=== PATIENT | female | born 1980 | race Caucasian/White ===

== ENCOUNTER 2021-10-02 08:47 | Day surgery (SDC) | payer OTHER, SELFPAY ==
[~2021-10-02] VITALS: Ht 157.5 cm; Wt 68.0 kg
[2021-10-02] MEDS ORDERED: fentaNYL citrate 0.05 MG/ML VIAL ONE (11:05)
[2021-10-02] MEDS ORDERED: MIDAZOLAM 5 MG/5 ML VIAL ONE (11:05)
[2021-10-02] MEDS ORDERED: diphenhydrAMINE 50 MG/ML VIAL ONE (11:05)
[2021-10-02] MEDS ORDERED: MIDAZOLAM 2 MG/2 ML VIAL IVP ONE (14:00)
[2021-10-02] MEDS ORDERED: fentaNYL citrate 0.05 MG/ML VIAL IVP ONE (14:00)
== END 2021-10-02 12:30 | disposition home or self-care (01) ==
LOC: MDS 08:47 → MMU 08:47 → MDS 12:30
PROVIDERS: ATTEND Internal Medicine Gastroenterology
DX: R10.10 Upper abdominal pain, unspecified (principal); K44.9 Diaphragmatic hernia without obstruction or gangrene; Z20.822 Contact with and (suspected) exposure to COVID-19; Z79.899 Other long term (current) drug therapy
CPT/HCPCS: 43239; 81025; 87426; J2250; J3010; J1200

== ENCOUNTER 2024-06-03 10:44 | Day surgery (SDC) | payer OTHER ==
[~2024-06-03] VITALS: Ht 157.5 cm; Wt 63.0 kg
[2024-06-03] MEDS ORDERED: fentaNYL citrate 0.05 MG/ML VIAL ONE ×2 (12:13→12:29)
[2024-06-03] MEDS: fentaNYL citrate 0.05 MG/ML VIAL IVP ONE (12:30)
[2024-06-03] MEDS: LIDOCAINE 2% 100 MG/5 ML UJET TP ONE (12:37)
== END 2024-06-03 13:30 | disposition home or self-care (01) ==
LOC: MDS 10:44 → MMU 11:30 → MDS 13:30
PROVIDERS: ATTEND Internal Medicine Gastroenterology
DX: Z12.11 Encounter for screening for malignant neoplasm of colon (principal); K63.5 Polyp of colon; K64.4 Residual hemorrhoidal skin tags; I10 Essential (primary) hypertension; K21.9 Gastro-esophageal reflux disease without esophagitis; F41.9 Anxiety disorder, unspecified; Z80.3 Family history of malignant neoplasm of breast; Z98.890 Other specified postprocedural states
CPT/HCPCS: 45385; J3010